=== PATIENT | female | born 1965 | race Caucasian/White ===

== ENCOUNTER 2017-03-26 18:52 | Emergency (ER) | payer SELFPAY ==
[2017-03-26 18:53] VITALS: PULSE 83; RESP 20; TEMP 98.6; O2SAT 98
[2017-03-26] MEDS ORDERED: FLUT1SPR5 EACH NARE (20:48)
[2017-03-26] MEDS ORDERED: CLAR10CA3 PO (20:48)
--- NOTE | 2017-03-26 20:49 | PD ---
HPI . Upper respiratory symptoms Chief Complaint: ENT Complaint Time Seen by Provider: 20:28 Travel History International Travel<30 days: No Contact w/Intl Traveler<30days: No Traveled to known affect area: No History of Present Illness HPI 52 -year-old female presents emergency department for evaluation of nasal congestion, bilateral ear pressure but increased pressure in the right ear and sore throat. Patient denies any fevers, chills, malaise, chest pain, nausea, vomiting, diarrhea. PFSH Past Medical History Arthritis: Yes Blood Disorders: No Depression: Yes Cancer: No Cardiovascular Problems: No Diabetes: No Diminished Hearing: No Endocrine: No Gastrointestinal Disorders: Yes (GASTRIC BYPASS & HERNIA SURGERY) GERD: Yes Genitourinary: Yes Headaches: No Hypertension: Yes Immune Disorder: No Musculoskeletal: Yes Neurologic: No Respiratory: Yes (ASTHMA) Pneumonia: Yes Seizures: No Thyroid Disease: Yes (HYPO) Ulcer: Yes Past Surgical History Abdominal Surgery: Yes (GASTRIC BY PASS - 05/11/00 & HERNIA SURGERY - 01/23/01) AICD: No Joint Replacement: No Pacemaker: No Social History Alcohol Use: Yes (ONCE WEEKLY) Tobacco Use: Yes (1/2 PPW) Substance Use: Yes (RECOVERING CRACK COCAINE ADDICT) Allergies-Medications (Allergen,Severity, Reaction): Coded Allergies: penicillin G (Verified Allergy, Severe, 03/26/17) sulfamethoxazole (Verified Allergy, Severe, 03/26/17) trimethoprim (Verified Allergy, Severe, 03/26/17) hydromorphone (Verified Allergy, Unknown, Rash, 03/26/17) pt was medicated with im dilaudid and developed a large lump with redness noted at the site. Reported Meds & Prescriptions Reported Meds & Active Scripts Active Claritin (Loratadine) 10 Mg Cap 10 Mg PO DAILY 7 Days Flonase Nasal [place] (Fluticasone Nasal [place]a) 50 Mcg/Act Roll[place] 50 Mcg EACH NARE BID Review of Systems Except as stated in HPI: all other systems reviewed are Neg Physical Exam Narrative GENERAL: Well-nourished, well-developed 52 year old female patient in no acute distress. Nontoxic appearing. SKIN: Focused skin assessment warm/dry. HEAD: Normocephalic. Atraumatic. EYES: No scleral icterus. No injection or drainage. ENT: Mucosa pink and moist. No erythema or exudates. No uvular edema. No uvular , palatal, or tonsillar deviation. Airway patent. Nasal turbinates appear hypertrophic with congestion. EARS: Bilateral pinnae and external canals appear within normal limits. Bilateral tympanic membranes without erythema, dullness or perforation. Waxy buildup noted in bilateral ear canals. THROAT: No pharyngeal injection, exudates, or tonsillar hypertrophy. Airway is patent. NECK: Supple, trachea midline. No JVD or lymphadenopathy. CARDIOVASCULAR: Regular rate and rhythm without murmurs, gallops, or rubs. RESPIRATORY: Breath sounds equal bilaterally. No accessory muscle use. GASTROINTESTINAL: Abdomen soft, non-tender, nondistended. MUSCULOSKELETAL: No cyanosis, or edema. Data Data Last Documented VS Vital Signs Date Time Temp Pulse Resp B/P (MAP) Pulse Ox O2 Delivery O2 Flow Rate FiO2 03/26/17 18:53 98.6 83 20 98 Room Air Orders Orders Ed Discharge Order (03/26/17 20:49) MDM Medical Decision Making Medical Screen Exam Complete: Yes Emergency Medical Condition: Yes Interpretation(s) Afebrile, no tachycardia Differential Diagnosis Differential diagnosis include but not limited to pharyngitis, URI, viral syndrome, congestion, seasonal allergies Narrative Course 52-year-old female presents emergency department for evaluation of upper respiratory symptoms. On physical exam is noted that the patient has congestion with no signs or symptoms of any bacterial etiology. Patient was discharged home with supportive care and told to take Claritin in the morning and given a prescription for Flonase. Patient instructed to return to the emergency Department with any worsening condition but otherwise follow-up with primary care. Diagnosis Primary Impression: Ear congestion Qualified Codes: H93.8X3 - Other specified disorders of ear, bilateral Additional Impression: Nasal congestion Referrals: Primary Care Physician Patient Instructions: Earache (ED), General Instructions Additional Instructions: Please return to emergency department if your symptoms return or worsen. Follow up with your primary care provider. Take medications as prescribed. Supportive care, stay hydrated, eat enough rest, diet as tolerated. May take [id number] ibuprofen or Tylenol as needed for pain or fever. Med/Other Pt SpecificInfo: Prescription(s) given Scripts Loratadine (Claritin) 10 Mg Cap 10 MG PO DAILY for Allergy Management for 7 Days, #7 CAP 0 Refills Prov: Rosa Maria Lopez 03/26/17 Fluticasone Nasal [place] (Flonase Nasal [place]a) 50 Mcg/Act [place] 50 MCG EACH NARE BID for Allergies, #1 BOTTLE 0 Refills Prov: Rosa Maria Lopez 03/26/17 Disposition: 01 DISCHARGE HOME Condition: Stable Rosa Maria Lopez Mar 26, 2017 20:49
== END 2017-03-26 21:01 | disposition home or self-care (01) ==
LOC: NEPK 18:52
DX: H93.8X3 Other specified disorders of ear, bilateral (principal); R09.81 Nasal congestion; J02.9 Acute pharyngitis, unspecified; I10 Essential (primary) hypertension; M19.90 Unspecified osteoarthritis, unspecified site; F32.9 Major depressive disorder, single episode, unspecified; K21.9 Gastro-esophageal reflux disease without esophagitis; J45.909 Unspecified asthma, uncomplicated; E03.9 Hypothyroidism, unspecified
CPT/HCPCS: 99283